=== PATIENT | female | born 1945 | race Caucasian/White ===

== ENCOUNTER → 2017-04-01 | Day surgery (SDC) | payer MEDICARE ==
[~2017-04-01] MED LIST: ACETAMINOPHEN 1000 MG/100 ML VIAL ONE; ACETAMINOPHEN/HYDROcodone 325 MG/5 MG TAB ONE; ARTIFICIAL TEARS OPTH OINT 3.5 APPLIC/3.5 GM TUBO ONE; BALANCED SALT SOLN OPHT IRRIG 15 ML BTL ONE; BUPIVACAINE/EPINEPHRINE 0.25% 50 ML VIAL ONE; DICL50TA2 PO; FOLI400T30 PO; GLEE400T2 PO; HYDR200T3 PO; LACTATED RINGER'S 1,000 ML BAG IV ONE; LIDOCAINE 1%/EPINEPHrine 1:200,000 PF SOLN 30 ML VIAL ONE; METH2.5 PO; MIDAZOLAM HCL 2 MG/2 ML VIAL ONE; NEOMYCIN/POLYMYXIN/BACITRACIN OINT 15 GM TUBE ONE; NEOSTIGMINE METHYLSULFATE 10 MG/10 ML VIAL IV PUSH ONE; ONDANSETRON 40 MG/20 ML VIAL IV ONE; PROPOFOL 200 MG/20 ML AMP IV ONE; RESP: ALBUTEROL 2.5 MG/3 ML NEB (SCH) ONE; RESP: SODIUM CHLORIDE 0.9% 5 ML NEB ONE; VITA100020 IM; ceFAZolin INJ 1,000 MG VIAL ONE; ePHEDrine/NS 25 MG/5 ML SYR IV ONE
--- NOTE | 2017-04-01 12:10 | TN ---
cc: DONALD ÁLVAREZ M.D. DATE OF SURGERY 04/01/2017 PREOPERATIVE DIAGNOSIS Basal carcinoma located on the right nasal ala. POSTOPERATIVE DIAGNOSIS Basal carcinoma located on the right nasal ala. PROCEDURE A wide local excision with a full-thickness defect of 2-1/2 x 2-1/2 cm. This required a nasolabial flap reconstruction as a full-thickness. The secondary defect is 6 x 2-1/2 cm. SURGEON Donald Álvarez MD ANESTHESIA 20 cc of 1% Lidocaine with epinephrine ESTIMATED BLOOD LOSS Minimal COMPLICATIONS None PROCEDURE The patient was properly consented, marked and anesthetized. The skin was sterilized with Microcyn and sterile draping applied as well as an intranasal prep. Excision was done on this cancer as a full-thickness since it was involving the mucosal side of the inner ala and one of the vestibules. Frozen section was sent and clear in all margins by Dr. Yasmine March. The nasolabial fold was elevated, defatted, folded on itself and anchored into the defect for a second defect of 6 x 2-1/2 cm. Sutures utilized included 4-0 chromic suture, 5-0 chromic suture, 5-0 fast-absorbing gut and 5-0 Monocryl suture. For dressings, I utilized Xeroform gauze, Betadine and bacitracin ointment and DMSO. Good viability of tissue was noted at the end of the case. The patient was awakened and extubated in the operating room, transferred back to the postanesthesia care unit. The patient tolerated the procedure well. MD ERICK Mueller/MALI /11:55 AM /12:03 PM ROSA MARIA
== END | disposition home or self-care (01) ==
LOC: ESDC 08:34
PROVIDERS: ATTEND Plastic Surgery
DX: C44.311 Basal cell carcinoma of skin of nose (principal)
CPT/HCPCS: 00300; 14061; 88305; 88331; J0131; J0690; J2250; J2405; J2710; J3010; J7120; J7613